=== PATIENT | female | born 1990 | race Caucasian/White ===

== ENCOUNTER 2016-03-30 08:54 | Emergency (ER) | payer OTHER ==
--- NOTE | 2016-03-30 09:22 | PDOC ---
Eye Complaint HPI - General Chief Complaint: Eye Problem / Injury Stated Complaint: EYES, ITCHY/SWOLLEN Date Seen by Provider: 03/30/16 Time Seen by Provider: 09:17 Source: POSITIVE: Patient Exam Limitations: POSITIVE: No limitations Nurse's Notes Reviewed & Considered: Yes - History of Present Illness Location: Both Eyes Timing: REPORTS: Abrupt Duration: <24 hours Severity: Mild Quality: REPORTS: Burning, Itching Recent Injury: REPORTS: No Associated Symptoms: REPORTS: Burning, Itching, Redness, Eyelid Swelling Context: REPORTS: Other (Dust and wind.) Location at Time of Onset: REPORTS: Home Modifying Factors: REPORTS: Other (benadryl) Similar Symptoms Previously: No Recent Care Received: REPORTS: Denies Any Prior Injuries Related to Current Complaint?: No - Patient Home Medications Home Medications: Home Medications Medroxyprogesterone Acetate [Depo-Provera] 150 mg IM 03/30/16 - Patient Allergies Allergies/Adverse Reactions: Allergies Allergy/AdvReac Type Severity Reaction Status Date / Time No Known Allergies Allergy Unverified 03/30/16 09:10 ROS - Limitations ROS Limitations: No Limitations Constitution: REPORTS: Denies Symptoms Cardiovascular: REPORTS: Denies Cardiac Symptoms Respiratory: REPORTS: Denies Resp Symptoms Neurological: REPORTS: Denies Neuro Symptoms Gastrointestinal: REPORTS: Denies GI Symptoms Endocrine: REPORTS: Denies Symptoms Musculoskeletal: REPORTS: Denies MS Symptoms Genitourinary: REPORTS: Denies Symptoms Eyes: REPORTS: Eye Pain, Itching Eyes, Other (swelling of eyelids.) ENT: REPORTS: Denies Symptoms Skin: REPORTS: Denies Skin Symptoms Lympathic: REPORTS: Denies Lympathic Symptoms Immunologic: POSITIVE: Denies Symptoms Psychiatric: POSITIVE: Denies Psych Symptoms Eye Complaint Physical Exam - General Appearance General Appearance: POSITIVE: Alert, Cooperative, No Acute Distress, No Evidence of Trauma - Visual Acuity / Pupil Size Pupil Size: 4 mm: Bilateral - HEENT Head / Face: POSITIVE: Atraumatic, Normal Inspection, No Facial Swelling Eyes: POSITIVE: PERRL, EOM's Intact, Conjunctivae Uninjured, Conjunctivae (red) Ears: POSITIVE: Ears Normal Inspection, Auricle Normal Nose: POSITIVE: Inspection Normal, No Apparent Trauma, Nares Normal, No CSF Leak Oropharynx: POSITIVE: External Inspection Nml, Pharynx Inspect. Nml, Airway Intact, Voice Normal, Moist Mucous Membranes Dental: POSITIVE: No Dental Injury - Skin Skin: POSITIVE: Normal Color, No Skin Rash - Respiratory / Cardiovascular Respiratory / CVS: POSITIVE: No Respiratory Distress - Abdomen Abdomen: Denies Tenderness: (All Quadrants) - Neurological / Psychological Neuro / Psych: POSITIVE: Oriented to Person, Oriented to Place, Oriented to Time Procedures - Laceration/Wound Repair Did patient have a laceration repair: No Eye Complaint Progress - Patient's Progress Pain Medication Addressed: POSITIVE: Not Applicable Status: POSITIVE: Improved MDM / ED Course: Patient brought into the emergency room and examined. Patient received Bleph-10 ophthalmic solution each eye. Assessment: Conjunctivitis Discharge home, Bleph-10 one drop 4 times a day for 3 days. - Consult Counseled: POSITIVE: Patient, RE: DX Patient Care Time - Estimated PCT Patient Care Time (In Minutes): 10 Vital Signs - VS Reviewed Vital Signs Reviewed: Yes Discharge Clinical Impression: Conjunctivitis Discharge Disposition: Discharged to Home Condition: Good Patient Instructions Given at Discharge: Conjunctivitis (ED)
[2016-03-30 09:23] VITALS: RESP 18; TEMP 97.6
[2016-03-30] MEDS: SULFACETAMIDE 10% - 5 ML EYE DROPS EACH EYE ONE (09:27)
== END 2016-03-30 09:34 | disposition home or self-care (01) ==
LOC: ER 08:54
DX: H10.33 Unspecified acute conjunctivitis, bilateral (principal); H57.13 Ocular pain, bilateral
CPT/HCPCS: 99282